=== PATIENT | male | born 1985 | race Caucasian/White ===

== ENCOUNTER 2019-03-25 10:19 | Inpatient (IN) | payer BC ==
--- NOTE | 2019-03-25 12:21 | BHS.RME ---
Substance Use & Tx History - Substance Use History Opiates (Heroin) Substance amount: 15 to 20 bags Frequency of use: Daily Substance route: Inhalation (ex: sniffing or snorting) Date of Last Use: 03/24/19 - Last Treatment Date of last treatment: 2016 Where was last treatment: Detox ([facility]) Physical/Psych/Mental Status - Behavior General Behavior: Increased activity (restlessness, agitation) Eye Contact: Normal - Cooperativeness Cooperativeness: Cooperative - Thinking Thought Processes: Logical Thought content: Future oriented - Physical Health Problems Is patient presently having any pain?: Yes (knne pain) Does patient presently have any injuries (include location): No Does patient currently have a fever: No COWS - Scale Resting Pulse: 1= RI 81-100 Sweatin= Chills/Flushing Restless Observation: 1= Difficult to Sit Still Pupil Size: 1= Pupils >than Normal Bone or Joint Aches: 2= Severe Diffuse Aches Runny Nose/ Eye Tearin= Runny Nose/Eyes GI Upset > 30mins: 2= Nausea/Diarrhea Tremor Observation: 2= Slight Tremor Visible Yawning Observation: 2= >3x During Session Anxiety or Irritability: 2=Irritable/Anxious Goose Flesh Skin: 0=Smooth Skin COWS Score: 16
[2019-03-25 13:12] VITALS: BMI 33.4
--- NOTE | 2019-03-25 13:49 | HP ---
COWS - Scale Resting Pulse: 1= PA 81-100 Sweatin= Chills/Flushing Restless Observation: 1= Difficult to Sit Still Pupil Size: 1= Pupils >than Normal Bone or Joint Aches: 2= Severe Diffuse Aches Runny Nose/ Eye Tearin= Runny Nose/Eyes GI Upset > 30mins: 2= Nausea/Diarrhea Tremor Observation: 2= Slight Tremor Visible Yawning Observation: 4= Several Times/Minute Anxiety or Irritability: 2=Irritable/Anxious Goose Flesh Skin: 0=Smooth Skin COWS Score: 18 CIWA Score - Admission Criteria OASAS Guidelines: Admission for Medically Managed Detox: Requires at least one of the followin. CIWA greater than 12 2. Seizures within the past 24 hours 3. Delirium tremens within the past 24 hours 4. Hallucinations within the past 24 hours 5. Acute intervention needed for co occurring medical disorder 6. Acute intervention needed for co occurring psychiatric disorder 7. Severe withdrawal that cannot be handled at a lower level of care (continued vomiting, continued diarrhea, abnormal vital signs) requiring intravenous medication and/or fluids 8. Admitting History and Physical - Admission History Source: Patient Limitations to Obtaining History: No Limitations - Past Medical History Psych: Yes: Addictions, Bipolar, Depression - Smoking History Smoking history: Current every day smoker Have you smoked in the past 12 months: Yes Aproximately how many cigarettes per day: 20 - Alcohol/Substance Use Hx Alcohol Use: No History of Substance Use: reports: Heroin - Social History Usual Living Arrangement: Yes: With Parent ADL: Independent Admission ROS S - HPI Chief Complaint: I need help to get off the opiates, I just can't seem to stop Allergies/Adverse Reactions: Allergies Allergy/AdvReac Type Severity Reaction Status Date / Time Penicillins Allergy Verified 03/25/19 12:53 History of Present Illness: 34 yo gentleman here for detox from opiates - first time here. Previous detox was about three years ago. He was on a methadone program about 5 years ago but went off it ('it didn't work' ) and relapsed. Tried suboxone (see below) but felt sick on it. History of overdose twice. Patient with history of a seizure 2.5 years ago. No recent ED visits. 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 Patient states he has had two overdoses. [facility] Others' Prescriptions Patient Name: Juno Baker Date: 1985 Address: [address] [place] [address] Sex: Male Rx Written Rx Dispensed Drug Quantity Days Supply Prescriber Name 11/25/2018 11/25/2018 buprenorphine-naloxone 8-2 mg sl film 7 7 Ron Larios MD * - Drugs marked with an asterisk are compound drugs. If the compound drug is made up of more than one controlled substance, then each controlled substance will be a separate row in the Exam Limitations: No Limitations - Ebola screening Have you traveled outside of the country in the last 21 days: No Have you had contact with anyone from an Ebola affected area: No Have you been sick,other than usual withdrawal symptoms: No Do you have a fever: No - Review of Systems Constitutional: Loss of Appetite, Malaise, Changes in sleep, Weakness EENT: reports: Nose Congestion Respiratory: reports: No Symptoms reported Cardiac: reports: No Symptoms Reported GI: reports: Nausea, Poor Appetite, Abdominal cramping : reports: No Symptoms Reported Musculoskeletal: reports: Back Pain, Muscle Pain Integumentary: reports: No Symptoms Reported Neuro: reports: Headache, Tremors, Weakness Endocrine: reports: No Symptoms Reported Hematology: reports: No Symptoms Reported Psychiatric: reports: Judgement Intact, Mood/Affect Appropiate, Orientated x3, Anxious Other Systems: Reviewed and Negative Patient History - Patient Medical History Hx Asthma: No Hx Chronic Obstructive Pulmonary Disease (COPD): No Hx Cancer: No Hx Cardiac Disorders: No Hx Congestive Heart Failure: No Hx Hypertension: No Hx Hypercholesterolemia: No Hx Pacemaker: No HX Cerebrovascular Accident: No Hx Seizures: Yes (2 1/2 years ago thought to be related to lithium he was on at the time) Hx Diabetes: No Hx Gastrointestinal Disorders: No Hx Liver Disease: No Hx Genitourinary Disorders: No Hx Sexually Transmitted Disorders: No Hx Renal Disease (ESRD): No Hx Thyroid Disease: No Hx Human Immunodeficiency Virus (HIV): No Hx Hepatitis C: No Hx Depression: Yes (sees psych - on meds) Hx Suicide Attempt: Yes (cutting wrist) Hx Bipolar Disorder: Yes (hospitalized 2 years ago ) Hx Schizophrenia: No - Patient Surgical History Past Surgical History: No Hx Neurologic Surgery: No Hx Cataract Extraction: No Hx Cardiac Surgery: No Hx Lung Surgery: No Hx Breast Surgery: No Hx Breast Biopsy: No Hx Abdominal Surgery: No Hx Appendectomy: No Hx Cholecystectomy: No Hx Genitourinary Surgery: No Hx Section: No Hx Orthopedic Surgery: Yes (right hand screws for fracture repair 2009) Other Surgical History: sx. ear (ear tubes) Anesthesia Reaction: No - PPD History Previous Implant?: Yes Documented Results: Negative w/o proof Implanted On Prior [facility] Admission?: No PPD to be Administered?: Yes - Reproductive History Patient is a Female of Child Bearing Age (11 -55 yrs old): No (male) - Smoking Cessation Smoking history: Current every day smoker Have you smoked in the past 12 months: Yes Aproximately how many cigarettes per day: 20 Cigars Per Day: 0 Hx Chewing Tobacco Use: No Initiated information on smoking cessation: Yes 'Breaking Loose' booklet given: 03/25/19 (give on floor) - Substance & Tx. History Hx Alcohol Use: No Hx Substance Use: Yes Substance Use Type: Heroin Hx Substance Use Treatment: Yes (detox, methadone, suboxone, rehab) - Substances abused Heroin Substance route: Inhalation Frequency: Daily Amount used: 15-20bags Age of first use: 25 Date of last use: 03/24/19 Admission Physical Exam BHS - Vital Signs Vital Signs: Vital Signs - 24 hr 03/25/19 03/25/19 13:09 13:29 Temperature 97.2 F L 97.2 F L Pulse Rate 81 81 Respiratory 16 16 Rate Blood Pressure 146/80 146/80 - Physical General Appearance: Yes: Nourished, Appropriately Dressed, Moderate Distress, Tremorous, Anxious HEENTM: Yes: EOMI, Hearing grossly Normal, Normocephalic, Normal Voice, Pharynx Normal, Nasal Congestion, Rhinorrhea Respiratory: Yes: Normal Breath Sounds, No Respiratory Distress Neck: Yes: No masses,lesions,Nodules, Supple Breast: Yes: Breast Exam Deferred Cardiology: Yes: Regular Rhythm, Regular Rate Abdominal: Yes: Soft Genitourinary: Yes: Within Normal Limits Back: Yes: Normal Inspection Musculoskeletal: Yes: full range of Motion, Gait Steady, Back pain Extremities: Yes: Normal Inspection, Tremors, Other (dorsal aspect of right hand with raised lump related to past surgery to repair fracture) Neurological: Yes: Fully Oriented, Alert, Normal Mood/Affect, Normal Response Integumentary: Yes: Normal Color, Warm Lymphatic: Yes: Within Normal Limits - Diagnostic (1) Opioid dependence with withdrawal Current Visit: Yes Status: Acute (2) Nicotine dependence Current Visit: Yes Status: Acute Qualifiers: Nicotine product type: cigarettes Substance use status: uncomplicated Qualified Code(s): F17.210 - Nicotine dependence, cigarettes, uncomplicated (3) History of seizure Current Visit: Yes Status: Resolved Cleared for Admission S - Detox or Rehab [facility] Level of Care: Medically Managed Detox Regimen/Protocol: Methadone Breathalyzer - Breathalyzer Breathalyzer: 0 Urine Drug Screen - Test Device Lot number: [id number] Expiration date: 01/02/21 - Control Is test valid?: Yes - Results Drug screen NEGATIVE: No Urine drug screen results: FEN-Fentanyl, MOP-Opiates Inpatient Rehab Admission - Rehab Decision to Admit Inpatient rehab admission?: No
[2019-03-25] MEDS ORDERED: METHADONE HCL 10 MG TABLET (FOR DETOX USE ONLY) PO ONE (13:50)
[2019-03-25] MEDS ORDERED: cloNIDine HCL 0.1 MG TABLET PO PRN (13:50)
[2019-03-25] MEDS ORDERED: MENTHOL/PHENOL 1 EACH UD MM PRN (13:50)
[2019-03-25] MEDS ORDERED: MAGNESIUM HYDROX 2400MG/30ML ORAL SUSPENSION 30 ML CUP PO PRN (13:50)
[2019-03-25] MEDS ORDERED: BISMUTH SUBSALICYLATE 524 MG/30 ML UD PO PRN (13:50)
[2019-03-25] MEDS ORDERED: NICOTINE POLACRILEX 4 MG GUM BUC PRN (13:50)
[2019-03-25] MEDS ORDERED: ACETAMINOPHEN 325 MG TABLET (FP) PO PRN ×2 (13:50)
[2019-03-25] MEDS ORDERED: MAGNESIUM CITRATE 300 ML BOTTLE PO PRN (13:50)
[2019-03-25] MEDS ORDERED: MAG HYDROX/AL HYDROX/SIMETH 30 ML UNIT-DOSE CUP PO PRN (13:50)
[2019-03-25] MEDS ORDERED: IBUPROFEN 400 MG TABLET (FP) PO PRN (13:50)
[2019-03-25] MEDS ORDERED: clonazePAM 0.5 MG TABLET PO PRN (13:50)
--- NOTE | 2019-03-25 16:31 | CONSULT ---
[facility] Psychiatric Consult - Data Date of interview: 03/25/19 Admission source: [facility] Identifying data: First visit to [facility] and admission to [address] [place] [address] for this 34 y/o male self-referred for detoxification treatment. MAIKEL issues : opioid, nicotine. 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 Substance Abuse History: Discussed with the patient. Details in current [facility] report as follows : Smoking history: Current every day smoker. Have you smoked in the past 12 months: Yes. Aproximately how many cigarettes per day: 20. Cigars Per Day: 0. Hx Chewing Tobacco Use: No. Initiated information on smoking cessation: Yes. 'Breaking Loose' booklet given: 03/25/19 (give on floor ). - Substance & Tx. History. Hx Alcohol Use: No. Hx Substance Use: Yes. Substance Use Type: Heroin. Hx Substance Use Treatment: Yes (detox, methadone, suboxone, rehab). - Substances abused. Heroin. Substance route: Inhalation. Frequency: Daily. Amount used: 15-20bags. Age of first use: 25. Date of last use: 03/24/19 Medical History: Medical profile is remarkable for antecedent of seizures ( three years ago during treatment with lithium) and history of surgeries ( orthopedic Surgery: fracture of right hand / hardware in situ + ENT intervention : ear tubes). Noted report of allergy to penicillins. Psychiatric History: Patient presents with an extensive history of mental illness which led to multiple psychiatric hospitalizations ([facility], [facility], [facility], [facility]). Diagnosed with Bipolar Disorder. Mr Baker sees a psychiatrist, Dr Santana, at the [facility]. He is no longer on lithium. " My doctor keeps me on seroquel 100 mg at night." Past history of opioid agonist therapy (methadone and switch to suboxone). Patient endorses history of several suicide attempts ( deliberate overdose with heroin, wrist-cutting). Most recent suicide attempt is reported by the patient to having occurred two years ago (approximately). Physical/Sexual Abuse/Trauma History: Patient denies history of abuse. Additional Comment: Urine drug screen results: FEN-Fentanyl, MOP-Opiates. Noted. Mental Status Exam - Mental Status Exam Alert and Oriented to: Time, Place, Person Cognitive Function: Good Patient Appearance: Disheveled Mood: Nervous, Withdrawn, Anxious Affect: Mood Congruent, Constricted Patient Behavior: Fatigued, Appropriate, Cooperative Speech Pattern: Clear, Appropriate Voice Loudness: Normal Thought Process: Goal Oriented Thought Disorder: Not Present Hallucinations: Denies Suicidal Ideation: Denies Homicidal Ideation: Denies Insight/Judgement: Poor Sleep: Fair Appetite: Good Gait/Station: Normal Psychiatric Findings - Problem List ([place] 1, 2,3) (1) Opioid dependence with withdrawal Current Visit: Yes Status: Acute (2) Nicotine dependence Current Visit: Yes Status: Chronic Qualifiers: Nicotine product type: cigarettes Substance use status: uncomplicated Qualified Code(s): F17.210 - Nicotine dependence, cigarettes, uncomplicated (3) History of bipolar disorder Current Visit: Yes Status: Chronic (4) Substance induced mood disorder Current Visit: Yes Status: Chronic - Initial Treatment Plan Initial Treatment Plan: Psychoeducation. Sleep hygiene. Detoxification in progress. Support.
[2019-03-25] MEDS ORDERED: QUEtiapine FUMARATE 100 MG TABLET (FP) PO ONE (22:00)
[2019-03-25] MEDS: THIAMINE HCL 100 MG TABLET (FP) PO SCH (22:28)
[2019-03-25] MEDS: QUEtiapine FUMARATE 50 MG TABLET PO SCH (22:28)
--- NOTE | 2019-03-26 02:19 | PN ---
S Progress Note Note: MD'S NOTE: CALLED AT 2:00AM TO SEE THE PT. WHO IS C/O TIGHTNESS IN THE LEFT LOWER PART OF THE CHEST FOR THE PAST 2 HRS. IT IS AT 6/10. OCC. EPISODES OF SOB+ NOC O/E: THE PT. IS RESTING COMFORTABLY AND LOUIS X 3 UPON AWAKENING, NOT DYSPNEIC, NO CYANOSIS V/S: 14-60-117/77 S/E: LUNGS: CLEAR CVS: -JVD, NL HEART SOUNDS, NO MURMURS ABD: SOFT, NT, -HSM, BS + IMPRESSION: CHEST PAIN - SEC. TO: MUSCULO-SKELETAL ORIGIN PLANS: EKG: NSR AT [address] NEW [address]-T CHANGES NOTED WHEN COMPARED TO PREVIOUS EKG : ANALGESICS AND OBSERVATION : WILL CONSIDER TRANSFERRING TO THE ER IN THE EVENT OF ANY WORSENING SYMPTOMS : WILL F/U NEEDED PROVIDER: EMMANUELLE AGUILAR MD
[2019-03-26] MEDS ORDERED: METHADONE HCL 10 MG TABLET (FOR DETOX USE ONLY) ONE (09:31)
[2019-03-26] MEDS ORDERED: METHADONE HCL 5 MG TABLET (FOR DETOX USE ONLY) ONE (09:32)
[2019-03-26] MEDS ORDERED: METHADONE (DETOX) 20 MG, METHADONE (DETOX) 5 MG PO ONE (10:00)
[2019-03-26] MEDS: PRENATAL VITAMINS W/ FOLIC ACID TABLET (FP) PO SCH (10:28)
[2019-03-26 11:40] LABS: HEMATOCRIT 37.6 % (35.4-49); HEMOGLOBIN 12.8 GM/dL (11.7-16.9); MCH 28.2 pg (25.7-33.7); MCHC 33.9 g/dl (32.0-35.9); MEAN CELL VOLUME 83.2 fl (80-96); MEAN PLT VOLUME 8.1 fl (7.5-11.1); PLATELET COUNT 116 K/MM3 (134-434); RBC 4.53 M/mm3 (4.00-5.60); RDW 14.9 % (11.9-15.9); WHITE BLOOD COUNT 4.8 K/mm3 (4.0-10.0)
--- NOTE | 2019-03-26 11:56 | PN ---
BHS COWS - Scale Resting Pulse: 1= NM 81-100 Sweatin= Chills/Flushing Restless Observation: 0= Sits Still Pupil Size: 1= Pupils >than Normal Bone or Joint Aches: 2= Severe Diffuse Aches Runny Nose/ Eye Tearin= None GI Upset > 30mins: 1= Stomach Cramp Tremor Observation of Outstretched Hands: 2= Slight Tremor Visible Yawning Observation: 0= None Anxiety or Irritability: 2=Irritable/Anxious Goose Flesh Skin: 3=Piloerection COWS Score: 13 BHS Progress Note (SOAP) Subjective: 34 years old male admitted on 03/25/19 for opiate withdrawal sx management treating with methadone detox regiment irritable restlessness trouble sleep at night belsomra 15 mg po x 1 robaxin 500 mg po x 1 Objective: 03/26/19 11:57 Vital Signs Temperature 96.9 F L 03/26/19 09:09 Pulse Rate 83 03/26/19 09:09 Respiratory Rate 16 03/26/19 09:09 Blood Pressure 138/85 03/26/19 09:09 O2 Sat by Pulse Oximetry (%) Laboratory Last Values WBC 4.8 K/mm3 (4.0-10.0) 03/26/19 07:25 RBC 4.53 M/mm3 (4.00-5.60) 03/26/19 07:25 Hgb 12.8 GM/dL (11.7-16.9) 03/26/19 07:25 Hct 37.6 % (35.4-49) 03/26/19 07:25 MCV 83.2 fl (80-96) 03/26/19 07:25 MCH 28.2 pg (25.7-33.7) 03/26/19 07:25 MCHC 33.9 g/dl (32.0-35.9) 03/26/19 07:25 RDW 14.9 % (11.9-15.9) 03/26/19 07:25 Plt Count 116 K/MM3 (134-434) L 03/26/19 07:25 MPV 8.1 fl (7.5-11.1) 03/26/19 07:25 lab noted Assessment: 03/26/19 11:57 opiate withdrawal Plan: methadone regiment
[2019-03-26] MEDS ORDERED: METHOCARBAMOL 500 MG TABLET PO ONE (11:57)
[2019-03-26 12:02] LABS: ALBUMIN 3.5 g/dl (3.4-5.0); BILIRUBIN,TOTAL 0.4 mg/dL (0.2-1); BLOOD UREA NITROGEN 12.8 mg/dL (7-18); CALCIUM 8.4 mg/dL (8.5-10.1); CREATININE 0.9 mg/dL (0.55-1.3); TOT PROT 7.4 g/dl (6.4-8.2)
[2019-03-26] MEDS ORDERED: SUVOREXANT 5 MG TABLET PO ONE (22:00)
[2019-03-26] MEDS: THIAMINE HCL 100 MG TABLET (FP) PO SCH (22:51)
[2019-03-26] MEDS: QUEtiapine FUMARATE 50 MG TABLET PO SCH (22:51)
--- NOTE | 2019-03-27 09:21 | PN ---
BHS COWS - Scale Resting Pulse: 0= GA 80 or Below Sweatin= Chills/Flushing Restless Observation: 0= Sits Still Pupil Size: 1= Pupils >than Normal Bone or Joint Aches: 1= Mild Discomfort Runny Nose/ Eye Tearin= Nasal Congestion GI Upset > 30mins: 1= Stomach Cramp Tremor Observation of Outstretched Hands: 2= Slight Tremor Visible Yawning Observation: 1= 1-2x During Session Anxiety or Irritability: 2=Irritable/Anxious Goose Flesh Skin: 0=Smooth Skin COWS Score: 10 BHS Progress Note (SOAP) Subjective: 34 years old male admitted on 03/25/19 for opiate withdrawal sx management treating with methadone detox regiment reports general body aches tylenal 650mg po x 1 states that slept better last night discusses sleep hygiene encourage to attend behavior and psychosocial therapies groups and meetings as part of recovery process patient is pessimistic about aftercare reluctant towards next level of care Objective: 03/27/19 09:29 Vital Signs Temperature 96 F L 03/27/19 08:43 Pulse Rate 68 03/27/19 08:43 Respiratory Rate 20 03/27/19 08:43 Blood Pressure 106/62 03/27/19 08:43 O2 Sat by Pulse Oximetry (%) Laboratory Last Values WBC 4.8 K/mm3 (4.0-10.0) 03/26/19 07:25 RBC 4.53 M/mm3 (4.00-5.60) 03/26/19 07:25 Hgb 12.8 GM/dL (11.7-16.9) 03/26/19 07:25 Hct 37.6 % (35.4-49) 03/26/19 07:25 MCV 83.2 fl (80-96) 03/26/19 07:25 MCH 28.2 pg (25.7-33.7) 03/26/19 07:25 MCHC 33.9 g/dl (32.0-35.9) 03/26/19 07:25 RDW 14.9 % (11.9-15.9) 03/26/19 07:25 Plt Count 116 K/MM3 (134-434) L 03/26/19 07:25 MPV 8.1 fl (7.5-11.1) 03/26/19 07:25 Sodium 139 mmol/L (136-145) 03/26/19 07:25 Potassium 4.0 mmol/L (3.5-5.1) 03/26/19 07:25 Chloride 107 mmol/L (98-107) 03/26/19 07:25 Carbon Dioxide 28 mmol/L (21-32) 03/26/19 07:25 Anion Gap 4 MMOL/L (8-16) L 03/26/19 07:25 BUN 12.8 mg/dL (7-18) 03/26/19 07:25 Creatinine 0.9 mg/dL (0.55-1.3) 03/26/19 07:25 Est GFR (CKD-EPI)AfAm 129.61 03/26/19 07:25 Est GFR (CKD-EPI)NonAf 111.83 03/26/19 07:25 Random Glucose 94 mg/dL (74-106) 03/26/19 07:25 Calcium 8.4 mg/dL (8.5-10.1) L 03/26/19 07:25 Total Bilirubin 0.4 mg/dL (0.2-1) 03/26/19 07:25 AST 17 U/L (15-37) 03/26/19 07:25 ALT 22 U/L (13-61) 03/26/19 07:25 Alkaline Phosphatase 76 U/L (45-117) 03/26/19 07:25 Total Protein 7.4 g/dl (6.4-8.2) 03/26/19 07:25 Albumin 3.5 g/dl (3.4-5.0) 03/26/19 07:25 RPR Titer Nonreactive (NONREACTIVE) 03/26/19 07:25 HIV 1&2 Antibody Screen Cancelled 03/26/19 07:25 HIV P24 Antigen Cancelled 03/26/19 07:25 lab noted Assessment: 03/27/19 09:29 opiate withdrawal Plan: methadone regiment
[2019-03-27] MEDS ORDERED: ACETAMINOPHEN 325 MG TABLET (FP) PO ONE (09:23)
[2019-03-27] MEDS ORDERED: METHADONE HCL 10 MG TABLET (FOR DETOX USE ONLY) PO ONE (10:00)
--- NOTE | 2019-03-27 10:29 | EKG ---
Test Reason : Blood Pressure : / mmHG Vent. Rate : 056 BPM Atrial Rate : 056 BPM P-R Int : 176 ms QRS Dur : 102 ms QT Int : 424 ms P-R-T Axes : 043 048 028 degrees QTc Int : 409 ms SINUS BRADYCARDIA OTHERWISE NORMAL ECG WHEN COMPARED WITH ECG OF 25-MAR-2019 14:02, NO SIGNIFICANT CHANGE WAS FOUND Confirmed by Steffanie Brewer ([id number]) on 03/27/2019 10:29:13 AM Referred By: Confirmed By:Steffanie Brewer
--- NOTE | 2019-03-27 10:30 | EKG ---
Test Reason : Blood Pressure : / mmHG Vent. Rate : 071 BPM Atrial Rate : 071 BPM P-R Int : 156 ms QRS Dur : 092 ms QT Int : 398 ms P-R-T Axes : 056 057 035 degrees QTc Int : 432 ms NORMAL SINUS RHYTHM NORMAL ECG NO PREVIOUS ECGS AVAILABLE Confirmed by Steffanie Brewer ([id number]) on 03/27/2019 10:29:49 AM Referred By: ERIK MCNEIL Confirmed By:Steffanie Brewer
[2019-03-27] MEDS: PRENATAL VITAMINS W/ FOLIC ACID TABLET (FP) PO SCH (10:35)
[2019-03-27 19:27] LABS: PH,URINE 5.5 (5.0-8.0); URINE APPEARANCE TURBID; URINE BILIRUBIN NEGATIVE (NEGATIVE); URINE COLOR YELLOW; URINE GLUCOSE (UA) NEGATIVE (NEGATIVE); URINE KETONE TRACE (NEGATIVE); URINE LEUK ESTERASE NEGATIVE (NEGATIVE); URINE NITRITE NEGATIVE (NEGATIVE); URINE PROTEIN NEGATIVE (NEGATIVE); URINE UROBILINOGEN 0.2 mg/dL (0.2-1.0)
[2019-03-27] MEDS: METHOCARBAMOL 500 MG TABLET PO PRN (21:58)
[2019-03-27] MEDS: QUEtiapine FUMARATE 50 MG TABLET PO SCH (21:58)
[2019-03-27] MEDS: THIAMINE HCL 100 MG TABLET (FP) PO SCH (21:59)
[2019-03-27] MEDS: MELATONIN 5 MG TABLETS PO PRN (21:59)
[2019-03-28] MEDS ORDERED: METHADONE HCL 10 MG TABLET (FOR DETOX USE ONLY) ONE (09:20)
[2019-03-28] MEDS ORDERED: METHADONE HCL 5 MG TABLET (FOR DETOX USE ONLY) ONE (09:20)
[2019-03-28] MEDS ORDERED: METHADONE (DETOX) 10 MG, METHADONE (DETOX) 5 MG PO ONE (10:00)
[2019-03-28] MEDS: PRENATAL VITAMINS W/ FOLIC ACID TABLET (FP) PO SCH (10:33)
[2019-03-28] MEDS ORDERED: cloNIDine HCL 0.1 MG TABLET PO PRN (11:35)
--- NOTE | 2019-03-28 11:42 | PN ---
BHS COWS - Scale Resting Pulse: 1= GA 81-100 Sweatin= Chills/Flushing Restless Observation: 1= Difficult to Sit Still Pupil Size: 0= Normal to Room Light Bone or Joint Aches: 2= Severe Diffuse Aches Runny Nose/ Eye Tearin= Runny Nose/Eyes GI Upset > 30mins: 1= Stomach Cramp Tremor Observation of Outstretched Hands: 2= Slight Tremor Visible Yawning Observation: 1= 1-2x During Session Anxiety or Irritability: 2=Irritable/Anxious Goose Flesh Skin: 3=Piloerection COWS Score: 16 BHS Progress Note (SOAP) Subjective: pt states he has bodyaches, here for OUD. O: Vital Signs - 24 hr 03/27/19 03/27/19 03/27/19 12:31 16:30 20:23 Temperature 97.5 F L 96.0 F L 97.1 F L Pulse Rate 73 86 67 Respiratory 16 18 18 Rate Blood Pressure 123/80 140/70 120/78 03/28/19 03/28/19 03/28/19 00:33 03:28 06:13 Temperature 96.2 F L Pulse Rate 53 L Respiratory 18 18 18 Rate Blood Pressure 135/81 03/28/19 08:46 Temperature 98.5 F Pulse Rate 80 Respiratory 18 Rate Blood Pressure 134/84 Laboratory Tests 03/25/19 03/26/19 03/26/19 14:00 07:25 07:25 WBC 4.8 RBC 4.53 Hgb 12.8 Hct 37.6 MCV 83.2 MCH 28.2 MCHC 33.9 RDW 14.9 Plt Count 116 L MPV 8.1 Sodium Potassium Chloride Carbon Dioxide Anion Gap BUN Creatinine Est GFR (CKD-EPI)AfAm Est GFR (CKD-EPI)NonAf Random Glucose Calcium Total Bilirubin AST ALT Alkaline Phosphatase Total Protein Albumin Urine Color Urine Appearance Urine pH Ur Specific [place] Urine Protein Urine Glucose (UA) Urine Ketones Urine Blood Urine Nitrite Urine Bilirubin Urine Urobilinogen Ur Leukocyte Esterase RPR Titer HIV 1&2 Ag/Ab, 4th Gen Non reactive HIV 1&2 Antibody Screen Cancelled HIV P24 Antigen Cancelled 03/26/19 03/26/19 03/27/19 07:25 07:25 15:25 WBC RBC Hgb Hct MCV MCH MCHC RDW Plt Count MPV Sodium 139 Potassium 4.0 Chloride 107 Carbon Dioxide 28 Anion Gap 4 L BUN 12.8 Creatinine 0.9 Est GFR (CKD-EPI)AfAm 129.61 Est GFR (CKD-EPI)NonAf 111.83 Random Glucose 94 Calcium 8.4 L Total Bilirubin 0.4 AST 17 ALT 22 Alkaline Phosphatase 76 Total Protein 7.4 Albumin 3.5 Urine Color Yellow Urine Appearance Turbid Urine pH 5.5 Ur Specific [place] 1.035 Urine Protein Negative Urine Glucose (UA) Negative Urine Ketones Trace H Urine Blood Negative Urine Nitrite Negative Urine Bilirubin Negative Urine Urobilinogen 0.2 Ur Leukocyte Esterase Negative RPR Titer Nonreactive HIV 1&2 Ag/Ab, 4th Gen HIV 1&2 Antibody Screen HIV P24 Antigen a/p OUD- continue detox protocols, prn meds for Sx Rx., d/w pt long-term MAT- pt was in methadone program at [facility]- pt states he may go back after d/c from here
[2019-03-28] MEDS: QUEtiapine FUMARATE 50 MG TABLET PO SCH (22:34)
[2019-03-28] MEDS: METHOCARBAMOL 500 MG TABLET PO PRN (22:34)
[2019-03-28] MEDS: THIAMINE HCL 100 MG TABLET (FP) PO SCH (22:34)
[2019-03-28] MEDS: MELATONIN 5 MG TABLETS PO PRN (22:35)
--- NOTE | 2019-03-29 09:15 | DS ---
[facility] Detox Discharge Summary Admission Date: 03/25/19 Discharge Date: 03/29/19 - History Present History: Opioid Dependence Additional Comments: 34 years old male admitted on 03/25/19 for opiate withdrawal sx management treated with methadone detox regiment Mr Paul prefers to leave the detox today instead of estimated discharge date of 03/30/19 patient is alert oriented x 3 speech clearly coherently ambulating steady gait respiratory clear lungs bilaterally on auscultation abdomen soft round obese no rebound tenderness skin warm and dry seen by psychiatrist no medical intervention at this time Pertinent Past History: time for discharge 58 minutes - Physical Exam Results Vital Signs: Vital Signs Temperature 96.9 F L 03/29/19 07:09 Pulse Rate 61 03/29/19 07:09 Respiratory Rate 18 03/29/19 07:09 Blood Pressure 105/63 03/29/19 07:09 O2 Sat by Pulse Oximetry (%) Pertinent Admission Physical Exam Findings: opiate withdrawal Laboratory Last Values WBC 4.8 K/mm3 (4.0-10.0) 03/26/19 07:25 RBC 4.53 M/mm3 (4.00-5.60) 03/26/19 07:25 Hgb 12.8 GM/dL (11.7-16.9) 03/26/19 07:25 Hct 37.6 % (35.4-49) 03/26/19 07:25 MCV 83.2 fl (80-96) 03/26/19 07:25 MCH 28.2 pg (25.7-33.7) 03/26/19 07:25 MCHC 33.9 g/dl (32.0-35.9) 03/26/19 07:25 RDW 14.9 % (11.9-15.9) 03/26/19 07:25 Plt Count 116 K/MM3 (134-434) L 03/26/19 07:25 MPV 8.1 fl (7.5-11.1) 03/26/19 07:25 Sodium 139 mmol/L (136-145) 03/26/19 07:25 Potassium 4.0 mmol/L (3.5-5.1) 03/26/19 07:25 Chloride 107 mmol/L (98-107) 03/26/19 07:25 Carbon Dioxide 28 mmol/L (21-32) 03/26/19 07:25 Anion Gap 4 MMOL/L (8-16) L 03/26/19 07:25 BUN 12.8 mg/dL (7-18) 03/26/19 07:25 Creatinine 0.9 mg/dL (0.55-1.3) 03/26/19 07:25 Est GFR (CKD-EPI)AfAm 129.61 03/26/19 07:25 Est GFR (CKD-EPI)NonAf 111.83 03/26/19 07:25 Random Glucose 94 mg/dL (74-106) 03/26/19 07:25 Calcium 8.4 mg/dL (8.5-10.1) L 03/26/19 07:25 Total Bilirubin 0.4 mg/dL (0.2-1) 03/26/19 07:25 AST 17 U/L (15-37) 03/26/19 07:25 ALT 22 U/L (13-61) 03/26/19 07:25 Alkaline Phosphatase 76 U/L (45-117) 03/26/19 07:25 Total Protein 7.4 g/dl (6.4-8.2) 03/26/19 07:25 Albumin 3.5 g/dl (3.4-5.0) 03/26/19 07:25 Urine Color Yellow 03/27/19 15:25 Urine Appearance Turbid 03/27/19 15:25 Urine pH 5.5 (5.0-8.0) 03/27/19 15:25 Ur Specific [place] 1.035 (1.010-1.035) 03/27/19 15:25 Urine Protein Negative (NEGATIVE) 03/27/19 15:25 Urine Glucose (UA) Negative (NEGATIVE) 03/27/19 15:25 Urine Ketones Trace (NEGATIVE) H 03/27/19 15:25 Urine Blood Negative (NEGATIVE) 03/27/19 15:25 Urine Nitrite Negative (NEGATIVE) 03/27/19 15:25 Urine Bilirubin Negative (NEGATIVE) 03/27/19 15:25 Urine Urobilinogen 0.2 mg/dL (0.2-1.0) 03/27/19 15:25 Ur Leukocyte Esterase Negative (NEGATIVE) 03/27/19 15:25 RPR Titer Nonreactive (NONREACTIVE) 03/26/19 07:25 HIV 1&2 Ag/Ab, 4th Gen Non reactive (Non Reactive) 03/25/19 14:00 HIV 1&2 Antibody Screen Cancelled 03/26/19 07:25 HIV P24 Antigen Cancelled 03/26/19 07:25 lab noted - Treatment Hospital Course: Detox Protocol Followed, Detoxed Safely, Responded well, Discharged Condition Good, Rehab Referral Accepted Patient has Accepted [facility] Ref[facility] - Medication Discharge Medications: Ambulatory Orders Quetiapine Fumarate [Seroquel -] 100 mg PO HS 03/25/19 Naloxone HCl [Narcan] 4 mg NS ASDIR PRN #1 spray 03/29/19 - Diagnosis (1) Opioid dependence with withdrawal Status: Acute (2) Nicotine dependence Status: Acute Qualifiers: Nicotine product type: cigarettes Substance use status: in withdrawal Qualified Code(s): F17.213 - Nicotine dependence, cigarettes, with withdrawal (3) Substance induced mood disorder Status: Suspected - AMA Did Patient Leave Against Medical Advice: No COWS (PN) - Opiate Withdrawal Resting Pulse: 0= WI 80 or Below Sweatin= No chills or Flushing Restless Observation: 0= Sits Still Pupil Size: 0= Normal to Room Light Bone or Joint Aches: 1= Mild Discomfort Runny Nose/ Eye Tearin= None GI Upset > 30mins: 1= Stomach Cramp Tremor Observation of Outstretched Hands: 2= Slight Tremor Visible Yawning Observation: 0= None Anxiety or Irritability: 2=Irritable/Anxious Goose Flesh Skin: 0=Smooth Skin COWS Score: 6
[2019-03-29] MEDS ORDERED: METHADONE HCL 10 MG TABLET (FOR DETOX USE ONLY) PO ONE (10:00)
[2019-03-29 11:13] VITALS: BP 137/89; PULSE 96; TEMP 98.1
[2019-03-30] MEDS ORDERED: METHADONE HCL 5 MG TABLET (FOR DETOX USE ONLY) PO ONE (06:00)
== END 2019-03-29 09:17 | disposition home or self-care (01) | DRG 897 ==
LOC: YASAS 10:19 → Y3N 14:04
PROVIDERS: ADMIT Allergy & Immunology; ATTEND Allergy & Immunology
PROC: HZ2ZZZZ Detoxification Services for Substance Abuse Treatment (ICD-10-PCS; principal; 2019-03-25)
DX: F11.23 Opioid dependence with withdrawal (principal); F17.213 Nicotine dependence, cigarettes, with withdrawal; F19.24 Other psychoactive substance dependence with psychoactive substance-induced mood disorder; F31.9 Bipolar disorder, unspecified; R07.89 Other chest pain; Z86.69 Personal history of other diseases of the nervous system and sense organs; Z91.5 Personal history of self-harm; Z88.0 Allergy status to penicillin
CPT/HCPCS: 36415; 80053; 81003; 85027; 86593; 87389; 93005; 93010